=== PATIENT | male | born 1970 | race Caucasian/White ===

== ENCOUNTER 2020-10-24 02:41 | Outpatient (CLI) | payer MEDICARE, MEDICAID, SELFPAY ==
[2020-10-24 12:30] LABS: HCT 45.1 % (40.0-50.0); HGB 15.1 g/dL (13.5-17.5); MCH 31.3 pg (27.0-33.0); MCHC 33.5 % (32.0-36.0); MCV 93.6 fL (80-95); Platelet Count 132 10^3/uL (130-400); RBC 4.82 10^6/uL (4.36-5.78); RDW 12.8 % (11.8-14.1); RDW-SD 44.3 fL; WBC 4.26 10^3/uL (4.4-10.8)
[2020-10-24 13:30] LABS: ALT 67 U/L (16-63); AST 30 U/L (15-37); Albumin 3.9 g/dL (3.4-5.0); Alkaline Phosphatase 62 U/L (46-116); Anion Gap 4.8 mmol/L (3-11); BUN 25 mg/dL (7-18); Bilirubin, Total 0.5 mg/dL (0.2-1.0); CO2 31.2 mmol/L (21.0-32.0); CREATININE 1.05 mg/dL (0.70-1.30); Calcium 9.3 mg/dL (8.5-10.1); Chloride 108 mmol/L (98-107); Glucose 80 mg/dL (74-106); Potassium 4.1 mmol/L (3.5-5.1); Sodium 144 mmol/L (136-145)
[2020-10-24 13:32] LABS: VALPROIC ACID 66.2 ug/mL (50-100)
== END 2020-10-24 03:01 ==
PROVIDERS: PCP Internal Medicine; Visit Provider Psychiatry & Neurology Child & Adolescent Psychiatry
DX: F71 Moderate intellectual disabilities (principal); Z51.81 Encounter for therapeutic drug level monitoring; Z79.899 Other long term (current) drug therapy
CPT/HCPCS: 36415; 80053; 85027; 80164

== ENCOUNTER 2022-01-03 02:54 | Outpatient (CLI) | payer MEDICARE, MEDICAID, SELFPAY ==
[2022-01-03 12:11] LABS: Abs Immature Grans 0.02 10^3/uL (0.0-0.06); Absolute Basophil Count 0.03 10^3/uL (0.0-0.2); Absolute Eosinophil Count 0.04 10^3/uL (0.0-0.7); Absolute Lymphocyte Count 0.93 10^3/uL (1.2-3.4); Absolute Monocyte Count 0.31 10^3/uL (0.1-0.8); Absolute Neutrophil Count 3.88 10^3/uL (1.2-6.7); Basophils % 0.6; Eosinophils % 0.8; HCT 42.6 % (40.0-50.0); HGB 13.6 g/dL (13.5-17.5); Immature Grans % 0.4; Lymphocytes % 17.9; MCHC 31.9 % (32.0-36.0); MPV 9.8 fL (8.0-11.0); Neutrophils % 74.3; Nucleated RBC 0 %; Platelet Count 147 10^3/uL (130-400); RBC 4.39 10^6/uL (4.36-5.78); RDW 13.6 % (11.8-14.1); RDW-SD 49.4 fL; WBC 5.21 10^3/uL (4.4-10.8)
[2022-01-03 12:20] LABS: VALPROIC ACID 46.6 ug/mL
[2022-01-03 13:18] LABS: ALT 45 U/L (16-63); AST 27 U/L (15-37); Albumin 3.8 g/dL (3.4-5.0); Alkaline Phosphatase 68 U/L (46-116); Anion Gap 9.1 mmol/L (3-11); BUN 25 mg/dL (7-18); Bilirubin, Total 0.5 mg/dL (0.2-1.0); CO2 28.9 mmol/L (21.0-32.0); CREATININE 0.9 mg/dL (0.70-1.30); Chloride 109 mmol/L (98-107); Glucose 88 mg/dL (74-106); Potassium 4.2 mmol/L (3.5-5.1); Sodium 147 mmol/L (136-145); Total Protein 7.2 g/dL (6.4-8.2)
== END 2022-01-03 02:55 | disposition home or self-care (01) ==
PROVIDERS: PCP Internal Medicine; Visit Provider Psychiatry & Neurology Child & Adolescent Psychiatry
DX: F71 Moderate intellectual disabilities (principal); Z51.81 Encounter for therapeutic drug level monitoring; Z79.899 Other long term (current) drug therapy
CPT/HCPCS: 36415; 80053; 80164; 85025

== ENCOUNTER 2022-01-24 01:48 | Outpatient (CLI) | payer MEDICARE, MEDICAID, SELFPAY | END 2022-01-24 01:49 | disposition home or self-care (01) | LOC: LBO 01:48 | PROVIDERS: PCP Internal Medicine; Visit Provider Internal Medicine ==

== ENCOUNTER 2022-01-27 02:38 | Outpatient (CLI) | payer MEDICARE, MEDICAID, SELFPAY ==
[2022-01-27 16:29] LABS: Abs Immature Grans 0.03 10^3/uL (0.0-0.06); Absolute Basophil Count 0.04 10^3/uL (0.0-0.2); Absolute Eosinophil Count 0.17 10^3/uL (0.0-0.7); Absolute Lymphocyte Count 0.82 10^3/uL (1.2-3.4); Absolute Monocyte Count 0.75 10^3/uL (0.1-0.8); Absolute Neutrophil Count 5.89 10^3/uL (1.2-6.7); Basophils % 0.5; Eosinophils % 2.2; HCT 41.2 % (40.0-50.0); HGB 13.6 g/dL (13.5-17.5); Immature Grans % 0.4; Lymphocytes % 10.6; MCH 31.5 pg (27.0-33.0); MCV 95 fL (80-95); MPV 10.5 fL (8.0-11.0); Monocytes % 9.7; Neutrophils % 76.6; Platelet Count 142 10^3/uL (130-400); RBC 4.32 10^6/uL (4.36-5.78); RDW 13.1 % (11.8-14.1); RDW-SD 46.2 fL
[2022-01-27 16:37] LABS: Ammonia 19 umol/L (11-32)
[2022-01-27 17:07] LABS: ALT 55 U/L (16-63); AST 30 U/L (15-37); Albumin 3.5 g/dL (3.4-5.0); Alkaline Phosphatase 65 U/L (46-116); Bilirubin, Direct 0.1 mg/dL (0.0-0.2); Bilirubin, Total 0.3 mg/dL (0.2-1.0); Total Protein 6.8 g/dL (6.4-8.2)
[2022-01-27 17:48] LABS: VALPROIC ACID 77.9 ug/mL
== END 2022-01-27 02:39 | disposition home or self-care (01) ==
LOC: LBO 02:38
PROVIDERS: PCP Internal Medicine; Visit Provider Internal Medicine
DX: Z51.81 Encounter for therapeutic drug level monitoring; Z79.899 Other long term (current) drug therapy; F71 Moderate intellectual disabilities; F34.89 Other specified persistent mood disorders
CPT/HCPCS: 36415; 80076; 80164; 82140; 85025

== ENCOUNTER 2022-01-27 02:46 | Outpatient (CLI) | payer MEDICARE, MEDICAID, SELFPAY | END 2022-01-27 02:47 | disposition home or self-care (01) | LOC: LOS 02:46 | PROVIDERS: PCP Internal Medicine; Visit Provider Internal Medicine ==

== ENCOUNTER 2022-03-17 10:50 | Outpatient (CLI) | payer MEDICARE, MEDICAID, SELFPAY ==
[2022-03-17 12:44] LABS: Abs Immature Grans 0.02 10^3/uL (0.0-0.06); Absolute Basophil Count 0.03 10^3/uL (0.0-0.2); Absolute Eosinophil Count 0.13 10^3/uL (0.0-0.7); Absolute Lymphocyte Count 1.04 10^3/uL (1.2-3.4); Absolute Monocyte Count 0.32 10^3/uL (0.1-0.8); Absolute Neutrophil Count 3.21 10^3/uL (1.2-6.7); Basophils % 0.6; Eosinophils % 2.7; HCT 43.2 % (40.0-50.0); HGB 14.4 g/dL (13.5-17.5); Immature Grans % 0.4; Lymphocytes % 21.9; MCH 30.8 pg (27.0-33.0); MCHC 33.3 % (32.0-36.0); MCV 92 fL (80-95); MPV 9.4 fL (8.0-11.0); Monocytes % 6.7; Neutrophils % 67.7; Platelet Count 128 10^3/uL (130-400); RBC 4.68 10^6/uL (4.36-5.78); RDW 12.9 % (11.8-14.1); RDW-SD 43.8 fL; WBC 4.75 10^3/uL (4.4-10.8)
[2022-03-17 12:57] LABS: Ammonia 61 umol/L (11-32)
[2022-03-17 13:20] LABS: ALT 65 U/L (16-63); AST 30 U/L (15-37); Albumin 3.4 g/dL (3.4-5.0); Alkaline Phosphatase 62 U/L (46-116); Anion Gap 7.2 mmol/L (3-11); BUN 21 mg/dL (7-18); Bilirubin, Total 0.4 mg/dL (0.2-1.0); CO2 29.8 mmol/L (21.0-32.0); CREATININE 0.9 mg/dL (0.70-1.30); Chloride 101 mmol/L (98-107); Glucose 87 mg/dL (74-106); Potassium 4.3 mmol/L (3.5-5.1); Sodium 138 mmol/L (136-145); Total Protein 7.1 g/dL (6.4-8.2)
[2022-03-17 15:51] LABS: VALPROIC ACID 99.1 ug/mL
== END 2022-03-17 10:51 | disposition home or self-care (01) ==
LOC: LBO 10:54
PROVIDERS: PCP Internal Medicine; Visit Provider Psychiatry & Neurology Child & Adolescent Psychiatry
DX: F71 Moderate intellectual disabilities (principal); Z51.81 Encounter for therapeutic drug level monitoring; Z79.899 Other long term (current) drug therapy
CPT/HCPCS: 36415; 80053; 80164; 82140; 85025

== ENCOUNTER → 2022-04-21 01:50 | Outpatient (CLI) | payer MEDICARE, MEDICAID, SELFPAY ==
--- NOTE | 2022-04-21 | DI.MRI_ITS ---
Exam(s) MR LUMBAR SPINE WO EXAM: MR LUMBAR SPINE WO CLINICAL HISTORY: MILD LOW BACK PAIN M54.59. TECHNIQUE: Multiplanar multisequence MRI of the Lumbar spine was performed. COMPARISON: No plain films available at the time of this MRI interpretation. FINDINGS: Five lumbar vertebrae are presumed. Conus medullaris is at normal level. There is no evidence of conus mass nor subjacent clumping of in trathecal nerve roots to suggest arachnoiditis. The distal thecal sac appears unremarkable.There is no evidence of Tarlov intrasacral cysts nor other significant findings within the sacral canal Bones:There are no fractures nor ominous osseous lesions in the lumbar vertebral bodies and visualize d sacrum. With respect to the individual levels... T12-L1: Unremarkable L1-2: Normal disc height and signal. No disc herniation nor central canal stenosis.No foraminal steno sis L2-3: Normal disc height. No disc herniation nor central canal stenosis.No foraminal stenosis.No face t arthropathy. L3-4: Normal disc height and signal. No disc herniation or central canal stenosis. No foraminal gabbi nosis. No significant facet arthropathy. L4-5: Normal disc height and signal. There is annular bulging with a superimposed shallow central davidson bligamentous disc protrusion. This mildly indents the thecal sac, resulting in mild central canal st enosis. No foraminal stenosis. No facet arthropathy. L5-S1: Normal disc height and signal. Posteriorly there is a central annular tear with central subli gamentous disc protrusion at this level. This indents the anterior aspect thecal sac. Results in mi ld central canal stenosis. There is no significant foraminal stenosis. Soft tissues: On the right side there are cysts which are evident in the lateral aspect of the right kidney and medial right hepatic lobe. However, please note that this area is blurred and difficult to assess. IMPRESSION: 1. Findings above at L4-5 and L5-S1 levels with central subligamentous disc protrusions at these 2 le vels. However, please note that there are no plain films available time this MRI interpretation and there appears to be possible transitional anatomy. Therefore a set of lumbar spine plain film as wel l as AP view of the thoracic spine is recommended, particularly if this patient is ever to be a surgi madison candidate. This would avoid operating on the wrong level(s). DATA REPOSITORY:
== END ==
PROVIDERS: PCP Internal Medicine; Visit Provider Internal Medicine
DX: M51.27 Other intervertebral disc displacement, lumbosacral region
CPT/HCPCS: 72148

== ENCOUNTER 2022-10-22 17:58 | Outpatient (REF) | payer MEDICARE, MEDICAID, SELFPAY ==
[2022-10-22 12:46] LABS: Bilirubin Negative (Negative); Blood Negative (Negative); Clarity Clear (Clear); Glucose Negative (Negative); Ketones Negative (Negative); Leukocyte Esterase Negative (Negative); Nitrite Negative (Negative); Specific Gravity 1.025 (1.005-1.025)
== END 2022-10-22 17:59 | disposition home or self-care (01) ==
LOC: NCHCN 17:58
PROVIDERS: PCP Internal Medicine; Visit Provider Internal Medicine
DX: R32 Unspecified urinary incontinence (principal); R82.998 Other abnormal findings in urine
CPT/HCPCS: 81003

== ENCOUNTER 2023-01-14 12:35 | Outpatient (CLI) | payer MEDICARE, MEDICAID, SELFPAY ==
[2023-01-14 11:57] LABS: Abs Immature Grans 0.02 10^3/uL (0.0-0.06); Absolute Basophil Count 0.02 10^3/uL (0.0-0.2); Absolute Eosinophil Count 0.05 10^3/uL (0.0-0.7); Absolute Lymphocyte Count 1.22 10^3/uL (1.2-3.4); Absolute Monocyte Count 0.51 10^3/uL (0.1-0.8); Absolute Neutrophil Count 3.69 10^3/uL (1.2-6.7); Basophils % 0.4; Eosinophils % 0.9; HCT 42.6 % (40.0-50.0); HGB 14.5 g/dL (13.5-17.5); Immature Grans % 0.4; Lymphocytes % 22.1; MCH 32.5 pg (27.0-33.0); MCV 96 fL (80-95); MPV 9.5 fL (8.0-11.0); Monocytes % 9.3; Neutrophils % 66.9; Platelet Count 108 10^3/uL (130-400); RBC 4.46 10^6/uL (4.36-5.78); RDW 13.1 % (11.8-14.1); RDW-SD 46.5 fL; WBC 5.51 10^3/uL (4.4-10.8)
[2023-01-14 12:39] LABS: ALT 101 U/L (16-63); AST 78 U/L (15-37); Albumin 3.4 g/dL (3.4-5.0); Alkaline Phosphatase 65 U/L (46-116); Anion Gap 3.4 mmol/L (3-11); BUN 21 mg/dL (7-18); Bilirubin, Total 0.6 mg/dL (0.2-1.0); CO2 31.6 mmol/L (21.0-32.0); CREATININE 1.1 mg/dL (0.70-1.30); Chloride 107 mmol/L (98-107); Estimated GFR 80.27 (mL/min/1.73m2); Glucose 81 mg/dL (74-106); Potassium 4.5 mmol/L (3.5-5.1); Sodium 142 mmol/L (136-145)
== END 2023-01-14 12:36 | disposition home or self-care (01) ==
LOC: LBO 12:36
PROVIDERS: PCP Internal Medicine; Visit Provider Psychiatry & Neurology Child & Adolescent Psychiatry
DX: F71 Moderate intellectual disabilities (principal)
CPT/HCPCS: 36415; 80053; 85025

== ENCOUNTER 2023-01-15 03:36 | Outpatient (CLI) | payer MEDICARE, MEDICAID, SELFPAY ==
[2023-01-15 10:36] LABS: VALPROIC ACID 110.4 ug/mL
== END 2023-01-15 03:37 | disposition home or self-care (01) ==
LOC: LBO 03:36
PROVIDERS: PCP Internal Medicine; Visit Provider Psychiatry & Neurology Child & Adolescent Psychiatry
DX: F71 Moderate intellectual disabilities (principal)
CPT/HCPCS: 80164

== ENCOUNTER 2023-03-10 20:49 | Emergency (ER) | payer MEDICARE, MEDICAID, SELFPAY ==
[2023-03-10 20:51] VITALS: BP 142/89; PULSE 98; RESP 16; TEMP 36.9; O2SAT 98
--- NOTE | 2023-03-10 22:50 | W.ED.GENAD ---
Discharge Plan Disposition Patient Disposition: Home Discharge Details Clinical Impression: Laceration of hand, right Primary Care Provider: Kar Dillard ED Provider: Nahun Gonzalez Discharge Instructions Instructions: Laceration (ED) Additional Instructions: Watch for any signs of infection and return immediately to the emergency department if these occur. Otherwise keep dressing in place for the next 24-48 hours and then keep wound clean and dry. Return to the emergency department 14 days for suture removal. Referrals: Kar Dillard [Primary Care Provider] - 2 days Discharge Data Discharge Date/Time-TO BE ENTERED AT DEPARTURE: 03/10/23 23:01 Medical Decision Making Patient presenting to the emergency department with caregiver for chief complaint of right hand laceration. Patient has significant developmental disability and repetitive limited speech. Caregiver states that patient occasionally strikes things and she feels like he may have struck a piece of plexiglass injuring his right palm. Patient has full flexion and extension of his fingers and he does state sensation but again this is difficult to fully ascertain due to mental status. There is a 4-1/2 cm palmar laceration. Right hand palmar laceration repaired with #9 4-0 Prolene sutures. Patient tolerated procedure well. Patient up-to-date on tetanus per caregiver. Patient recommended to have follow-up with primary care provider in 48 hours for recheck of laceration. After discussion of diagnosis and plan of care, caregiver has no further needs, questions, or concerns and states clear understanding to return to the emergency department for any worsening symptoms. This documentation was generated using [employer] dictation system, please disregard any oddities of phrase or misspellings. HPI General Mode of arrival: ambulatory. Date/Time Provider Initiated Documentation: 03/10/23 22:50. Information obtained by: patient and family (caregiver). History of Present Illness 52 year old M presents to the emergency department with the chief complaint of Right hand laceration, described as moderate, Patient started experiencing this hour(s) (1) and it has been constant. Patient notes no other symptoms.. Patient did receive the following treatments prior to arrival, other (Irrigation at home) General Stated Complaint: Laceration KEVEN: 3 Review of Systems Narrative: 6 systems reviewed and unremarkable except what is marked below. Musculoskeletal Musculoskeletal: Reports as per HPI Integumentary/Breasts Skin/Breast: Reports as per HPI PFS All Active Problems (Updated 03/11/23 @ 22:39 by Nahun Gonzalez NP) Cognitive developmental delay (Acute) Laceration of hand, right (Acute) Social History Smoking/Tobacco Use Status: Never Smoking risk assessment performed?: Yes Alcohol Intake: never Drug use: Never Substance use type: does not use Do you feel safe at home: Yes Do you feel safe in your relationship?: Yes Exam Const General: cooperative, no acute distress and not ill appearing Orientation: alert and awake [facility] Mouth: moist mucous membranes Resp Effort & Inspection: normal respiratory effort, able to speak in complete sentences and no respiratory distress Cardio Rate: regular rate Rhythm: regular rhythm Skin General skin exam: no rashes or lesions noted Neuro General: patient alert, patient awake, moves all extremities and no focal motor deficits Sensory Exam: no sensory deficits noted Extrem General: normal exam except as noted Right upper extremity: hand Details: neuromotor exam normal, neurosensory exam normal, tendon exam normal and laceration palm palmar aspect central Details: linear, actively bleeding, involving subcutaneous tissue, with motor nerve function intact and with sensation intact Course Vital Signs Vital signs: Vital Signs Temperature 36.9 C 03/10/23 20:51 Pulse 98 H 03/10/23 20:51 Respiratory Rate 16 03/10/23 20:51 Blood Pressure 142/89 H 03/10/23 20:51 Pulse Oximetry 98 03/10/23 20:51 Temperature 36.9 C 03/10/23 20:51 Temperature Source Oral 03/10/23 20:51 Pulse 98 H 03/10/23 20:51 Respiratory Rate 16 03/10/23 20:51 Respiratory Effort Normal 03/10/23 20:56 Blood Pressure 142/89 H 03/10/23 20:51 Blood Pressure Position Sitting 03/10/23 20:51 Pulse Oximetry 98 03/10/23 20:51 Oxygen Delivery Method Room Air 03/10/23 20:51 Oxygen Flow Rate 0 03/10/23 20:51 Pain Level 0 03/10/23 20:51 Procedures Laceration Laceration 1: Site: hand Side (If applicable): right Size (cm): 4.5 Description: stellate, irregular and clean Depth: simple, single layer Local Anesthetic: Lidocaine 1% and with Epi Amount of anesthesia used (mL): 7 Pre-repair: wound explored, irrigated extensively and deep structures intact Skin layer closed with: other (Prolene) Size (cm): 4-0 Number of sutures: 9 Technique: simple, interrupted
--- NOTE | 2023-03-10 23:26 | NUR.NOTE ---
Referral to care management to refer patient to his pcp Dr Kar Dillard for f/u to recheck r hand laceration.Nursing Note:
== END 2023-03-10 23:01 | disposition home or self-care (01) ==
PROVIDERS: Emergency Provider Nurse Practitioner Family; PCP Internal Medicine
DX: S61.411A Laceration without foreign body of right hand, initial encounter (principal); X58.XXXA Exposure to other specified factors, initial encounter; F81.9 Developmental disorder of scholastic skills, unspecified
CPT/HCPCS: 12002

== ENCOUNTER 2023-05-13 19:03 | Outpatient (REF) | payer MEDICARE, MEDICAID, SELFPAY ==
[2023-05-13 21:51] LABS: Abs Immature Grans 0.02 10^3/uL (0.0-0.06); Absolute Basophil Count 0.02 10^3/uL (0.0-0.2); Absolute Eosinophil Count 0.07 10^3/uL (0.0-0.7); Absolute Lymphocyte Count 0.94 10^3/uL (1.2-3.4); Absolute Monocyte Count 0.31 10^3/uL (0.1-0.8); Absolute Neutrophil Count 3.89 10^3/uL (1.2-6.7); Basophils % 0.4; Eosinophils % 1.3; HGB 13.8 g/dL (13.5-17.5); Immature Grans % 0.4; Lymphocytes % 17.9; MCHC 32.9 % (32.0-36.0); MCV 97 fL (80-95); MPV 10.5 fL (8.0-11.0); Monocytes % 5.9; Neutrophils % 74.1; Platelet Count 130 10^3/uL (130-400); RBC 4.31 10^6/uL (4.36-5.78); RDW 13.4 % (11.8-14.1); RDW-SD 48.3 fL; WBC 5.25 10^3/uL (4.4-10.8)
[2023-05-13 21:53] LABS: ESR 4 mm/hr (0-20)
[2023-05-13 21:58] LABS: C-Reactive Protein 0.74 mg/dL (0.0-0.3)
[2023-05-18 12:25] LABS: IgA 205 mg/dL (85-499); Interpretation (See Note); Tissue Transglutaminase IgA <1.2 U/mL (<4.0)
== END 2023-05-13 19:04 | disposition home or self-care (01) ==
LOC: NCHCN 19:03
PROVIDERS: PCP Internal Medicine; Visit Provider Internal Medicine
DX: R15.9 Full incontinence of feces (principal); R32 Unspecified urinary incontinence
CPT/HCPCS: 82784; 83516; 85652; 85025; 86140

== ENCOUNTER 2023-07-21 02:56 | Outpatient (CLI) | payer MEDICARE, MEDICAID, SELFPAY ==
[2023-07-21 12:50] LABS: Abs Immature Grans 0.02 10^3/uL (0.0-0.06); Absolute Basophil Count 0.04 10^3/uL (0.0-0.2); Absolute Eosinophil Count 0.33 10^3/uL (0.0-0.7); Absolute Lymphocyte Count 1.05 10^3/uL (1.2-3.4); Absolute Monocyte Count 0.37 10^3/uL (0.1-0.8); Basophils % 0.8; Eosinophils % 6.7; HCT 45.9 % (40.0-50.0); HGB 15.4 g/dL (13.5-17.5); Immature Grans % 0.4; Lymphocytes % 21.4; MCH 31.6 pg (27.0-33.0); MCHC 33.6 % (32.0-36.0); MCV 94 fL (80-95); MPV 10.4 fL (8.0-11.0); Monocytes % 7.5; Neutrophils % 63.2; Platelet Count 117 10^3/uL (130-400); RBC 4.87 10^6/uL (4.36-5.78); RDW-SD 45.6 fL; WBC 4.91 10^3/uL (4.4-10.8)
[2023-07-21 13:17] LABS: VALPROIC ACID 70.7 ug/mL
[2023-07-21 13:24] LABS: ALT 53 U/L (16-63); AST 33 U/L (15-37); Albumin 3.6 g/dL (3.4-5.0); Alkaline Phosphatase 82 U/L (46-116); Anion Gap 10.3 mmol/L (3-11); BUN 18 mg/dL (7-18); Bilirubin, Total 0.6 mg/dL (0.2-1.0); CO2 27.7 mmol/L (21.0-32.0); Calcium 9.6 mg/dL (8.5-10.1); Chloride 106 mmol/L (98-107); Estimated GFR 89.44 (mL/min/1.73m2); Glucose 106 mg/dL (74-106); Potassium 3.9 mmol/L (3.5-5.1); Sodium 144 mmol/L (136-145); TSH 5.31 uIU/mL (0.36-3.74); Total Protein 7.7 g/dL (6.4-8.2)
== END 2023-07-21 02:57 | disposition home or self-care (01) ==
LOC: LOS 02:56
PROVIDERS: PCP Internal Medicine; Visit Provider Nurse Practitioner Psychiatric/Mental Health
DX: R73.03 Prediabetes (principal)
CPT/HCPCS: 36415; 80053; 80164; 83036; 84443; 85025

== ENCOUNTER 2023-09-10 01:55 | Outpatient (CLI) | payer MEDICARE, MEDICAID, SELFPAY ==
[2023-09-10 12:51] LABS: Absolute Basophil Count 0.02 10^3/uL (0.0-0.2); Absolute Eosinophil Count 0.07 10^3/uL (0.0-0.7); Absolute Lymphocyte Count 0.66 10^3/uL (1.2-3.4); Absolute Monocyte Count 0.28 10^3/uL (0.1-0.8); Basophils % 0.7; Eosinophils % 2.3; HGB 13.5 g/dL (13.5-17.5); Lymphocytes % 21.8; MCH 32.1 pg (27.0-33.0); MCHC 32.9 % (32.0-36.0); MCV 98 fL (80-95); MPV 10.2 fL (8.0-11.0); Monocytes % 9.2; Platelet Count 116 10^3/uL (130-400); RDW 13.7 % (11.8-14.1); RDW-SD 49.1 fL; WBC 3.03 10^3/uL (4.4-10.8)
[2023-09-10 13:06] LABS: VALPROIC ACID 83.6 ug/mL
[2023-09-10 13:09] LABS: ALT 72 U/L (16-63); AST 57 U/L (15-37); Alkaline Phosphatase 66 U/L (46-116); Anion Gap 7.6 mmol/L (3-11); BUN 24 mg/dL (7-18); Bilirubin, Total 0.5 mg/dL (0.2-1.0); CO2 29.4 mmol/L (21.0-32.0); CREATININE 1.1 mg/dL (0.70-1.30); Calcium 9.2 mg/dL (8.5-10.1); Chloride 109 mmol/L (98-107); Estimated GFR 79.77 (mL/min/1.73m2); Glucose 105 mg/dL (74-106); Potassium 4.5 mmol/L (3.5-5.1); Sodium 146 mmol/L (136-145); TSH 3.77 uIU/mL (0.36-3.74); Total Protein 6.8 g/dL (6.4-8.2)
[2023-09-10 13:27] LABS: Hemoglobin A1C 4.7 % (<5.7)
== END 2023-09-10 01:56 | disposition home or self-care (01) ==
LOC: LOS 01:55
PROVIDERS: PCP Internal Medicine; Visit Provider Nurse Practitioner Psychiatric/Mental Health
DX: R73.03 Prediabetes (principal); Z79.899 Other long term (current) drug therapy
CPT/HCPCS: 36415; 80053; 80164; 83036; 84443; 85025

== ENCOUNTER 2023-09-15 02:51 | Outpatient (CLI) | payer MEDICARE, MEDICAID, SELFPAY ==
[2023-09-15 13:56] LABS: VALPROIC ACID 98.2 ug/mL
== END 2023-09-15 02:52 | disposition home or self-care (01) ==
LOC: LOS 02:51
PROVIDERS: PCP Internal Medicine; Visit Provider Nurse Practitioner Psychiatric/Mental Health
DX: Z79.810 Long term (current) use of selective estrogen receptor modulators (SERMs) (principal); R73.03 Prediabetes
CPT/HCPCS: 36415; 80164

== ENCOUNTER 2024-01-21 15:33 | Outpatient (REF) | payer MEDICARE, MEDICAID, SELFPAY ==
[2024-01-21 19:20] LABS: Abs Immature Grans 0.03 10^3/uL (0.0-0.06); Absolute Basophil Count 0.02 10^3/uL (0.0-0.2); Absolute Eosinophil Count 0.03 10^3/uL (0.0-0.7); Absolute Lymphocyte Count 0.75 10^3/uL (1.2-3.4); Absolute Monocyte Count 0.51 10^3/uL (0.1-0.8); Absolute Neutrophil Count 3.53 10^3/uL (1.2-6.7); Basophils % 0.4; Eosinophils % 0.6; HCT 38.6 % (40.0-50.0); HGB 12.6 g/dL (13.5-17.5); Immature Grans % 0.6; Lymphocytes % 15.4; MCH 33.1 pg (27.0-33.0); MCHC 32.6 % (32.0-36.0); MCV 101 fL (80-95); MPV 10.3 fL (8.0-11.0); Monocytes % 10.5; Neutrophils % 72.5; RBC 3.81 10^6/uL (4.36-5.78); RDW 14.2 % (11.8-14.1); RDW-SD 53.2 fL; WBC 4.87 10^3/uL (4.4-10.8)
[2024-01-21 19:34] LABS: Platelet Count 89 10^3/uL (130-400)
[2024-01-21 19:49] LABS: ALT 47 U/L (16-63); AST 33 U/L (15-37); Alkaline Phosphatase 66 U/L (46-116); Anion Gap 8.8 mmol/L (3-11); BUN 34 mg/dL (7-18); Bilirubin, Total 0.4 mg/dL (0.2-1.0); CO2 26.2 mmol/L (21.0-32.0); Calcium 8.6 mg/dL (8.5-10.1); Chloride 106 mmol/L (98-107); Estimated GFR 89.44 (mL/min/1.73m2); Ferritin 210 ng/mL (26-388); Glucose 95 mg/dL (74-106); Potassium 4.1 mmol/L (3.5-5.1); Sodium 141 mmol/L (136-145); Total Protein 6.8 g/dL (6.4-8.2)
[2024-01-21 20:41] LABS: VALPROIC ACID 94.6 ug/mL
[2024-01-21 20:43] LABS: Iron 67 ug/dL (65-175); Total Iron Binding Capacity 276 ug/dL (250-450)
[2024-01-22 18:53] LABS: Hepatitis C Ab w Rflx HCV PCR Negative (Negative)
[2024-01-25 15:43] LABS: Hepatitis Be Antigen Negative (Negative)
== END 2024-01-21 15:34 | disposition home or self-care (01) ==
LOC: NCHCN 15:33
PROVIDERS: PCP Internal Medicine; Visit Provider Internal Medicine
DX: D69.6 Thrombocytopenia, unspecified (principal); R74.8 Abnormal levels of other serum enzymes
CPT/HCPCS: 80053; 86803; 80164; 82728; 83540; 83550; 85025; 87350

== ENCOUNTER → 2024-02-29 14:28 | Outpatient (BNVA) | payer MEDICARE, MEDICAID, SELFPAY | PROVIDERS: PCP Internal Medicine; Referring Provider Internal Medicine; Visit Provider Podiatrist | DX: L97.512 Non-pressure chronic ulcer of other part of right foot with fat layer exposed (principal); L84 Corns and callosities; L60.2 Onychogryphosis; L03.031 Cellulitis of right toe; R09.89 Other specified symptoms and signs involving the circulatory and respiratory systems; M79.671 Pain in right foot | CPT/HCPCS: 11042; 11055; 99204 ==

== ENCOUNTER 2024-03-03 21:51 | Outpatient (REF) | payer MEDICARE, MEDICAID, SELFPAY ==
[2024-03-03 19:18] LABS: ALT 77 U/L (16-63); AST 51 U/L (15-37); Albumin 3.9 g/dL (3.4-5.0); Alkaline Phosphatase 65 U/L (46-116); Anion Gap 11.3 mmol/L (3-11); BUN 29 mg/dL (7-18); Bilirubin, Total 0.5 mg/dL (0.2-1.0); CO2 25.7 mmol/L (21.0-32.0); Calcium 9.3 mg/dL (8.5-10.1); Chloride 106 mmol/L (98-107); Estimated GFR 89.44 (mL/min/1.73m2); Glucose 108 mg/dL (74-106); Potassium 3.4 mmol/L (3.5-5.1); Sodium 143 mmol/L (136-145); TSH 4.01 uIU/Ml (0.36-3.74); Total Protein 7.4 g/dL (6.4-8.2)
== END 2024-03-03 21:52 | disposition home or self-care (01) ==
LOC: NCHCN 21:51
PROVIDERS: PCP Internal Medicine; Visit Provider Internal Medicine
DX: F39 Unspecified mood [affective] disorder (principal); R74.8 Abnormal levels of other serum enzymes
CPT/HCPCS: 80053; 84443

== ENCOUNTER → 2024-03-21 13:57 | Outpatient (BNVA) | payer MEDICARE, MEDICAID, SELFPAY | PROVIDERS: PCP Internal Medicine; Referring Provider Internal Medicine; Visit Provider Surgery | DX: Z12.11 Encounter for screening for malignant neoplasm of colon (principal); R63.4 Abnormal weight loss; R74.8 Abnormal levels of other serum enzymes; F84.0 Autistic disorder; F81.9 Developmental disorder of scholastic skills, unspecified; D69.6 Thrombocytopenia, unspecified | CPT/HCPCS: 99213 ==

== ENCOUNTER → 2024-03-23 14:56 | Outpatient (BNVA) | payer MEDICARE, MEDICAID, SELFPAY | PROVIDERS: PCP Internal Medicine; Referring Provider Internal Medicine; Visit Provider Podiatrist | DX: L97.512 Non-pressure chronic ulcer of other part of right foot with fat layer exposed (principal); L84 Corns and callosities; L60.2 Onychogryphosis; L03.115 Cellulitis of right lower limb | CPT/HCPCS: 99213 ==

== ENCOUNTER → 2024-04-19 01:00 | Outpatient (CLI) | payer MEDICARE, MEDICAID, SELFPAY ==
[2024-04-19] MEDS: Breeza Beverage 473 ML BTL PO ×2 (09:00→09:02)
[2024-04-19] MEDS: Omnipaque 350 MG/ML 50 ML BTL PO (09:01)
[2024-04-19] MEDS: Normal Saline - Diluent 50 ML VIAL IJ (10:35)
[2024-04-19] MEDS: Omnipaque 350 MG/ML 100 ML BTL 90 ML IJ (10:56)
--- NOTE | 2024-04-19 11:00 | DI.CT_ITS ---
Exam(s) CT ABDOMEN PELVIS W EXAM: CT ABDOMEN PELVIS W CLINICAL HISTORY: elevated LFT/low platelet,d69.6,r74.8 TECHNIQUE: Imaging Protocol: Axial computed tomography images with coronal and sagittal reformatted images were created and reviewed. CONTRAST MATERIAL: Intravenous: Omnipaque 350 Contrast volume:100 mL Oral: Yes COMPARISON: MR MR LUMBAR SPINE WO from 04/21/2022 FINDINGS: The examination is limited due to patient motion artifact. ABDOMEN: Lung Bases: Normal where visualized. Liver: The dome of the liver was not included secondary to patient motion artifact. There are severa l hepatic cysts. The largest is in the right lobe measures 2 cm. No suspicious hepatic masses are p resent. Portal, Superior Mesenteric, and Splenic Veins: Unremarkable. Gallbladder and Biliary Tract: No radiodense calculus or dilation. Pancreas: Normal density, no abnormal calcifications or inflammatory process. Spleen: Normal. Adrenals: No masses seen. Kidneys: Normal size, contour and axis. Left nephrolithiasis. No obstructive uropathy. There is a s mall hypodensity in the right kidney which is too small for further characterization but likely refle cts a small cyst. No follow-up is recommended. Abdominal Aorta: Abdominal portion non-dilated. Mild atherosclerotic calcification is present. Bowel: There is a large amount of stool throughout the colon suggesting constipation. There is no jp wel wall thickening or obstruction. Appendix is unremarkable. Peritoneal Cavity: No ascites, collection or mesenteric inflammatory response. No free air. Lymph Nodes: Within normal limits. Bones: Within normal limits for the patient's age. Soft Tissues: Unremarkable. PELVIS: Bladder: Symmetric distention, no gross wall thickening. Reproductive Organs: Unremarkable as visualized. Lymph Nodes: Within normal limits. Bones: Within normal limits for the patient's age. IMPRESSION: 1. No acute abdominal or pelvic process. 2. No evidence of a hepatic mass, cholelithiasis or biliary ductal dilatation. 3. Findings suggestive of constipation. RADIATION DOSE DELIVERED: Total DLP DATA REPOSITORY: All CT scans at this facility are submitted to the National Radiology Data Registry (NRDR) Dose Index Registry (DIR) with the [employer] (ACR). RADIATION OPTIMIZATION: All CT scans at this facility use at least one of these dose optimization te chniques: automated exposure control; mA and/or kV adjustment per patient size (includes targeted exa ms where dose is matched to clinical indication); or iterative reconstruction.
== END ==
PROVIDERS: PCP Internal Medicine; Visit Provider Surgery
DX: D69.6 Thrombocytopenia, unspecified (principal); R74.8 Abnormal levels of other serum enzymes; F81.9 Developmental disorder of scholastic skills, unspecified; F84.0 Autistic disorder
CPT/HCPCS: 74177; J3490; Q9967

== ENCOUNTER → 2024-04-21 14:13 | Outpatient (BNVA) | payer MEDICARE, MEDICAID, SELFPAY | PROVIDERS: PCP Internal Medicine; Referring Provider Internal Medicine; Visit Provider Podiatrist | DX: L97.512 Non-pressure chronic ulcer of other part of right foot with fat layer exposed (principal); L84 Corns and callosities; L60.2 Onychogryphosis; L03.115 Cellulitis of right lower limb; Q82.8 Other specified congenital malformations of skin; M20.41 Other hammer toe(s) (acquired), right foot | CPT/HCPCS: 17110 ==

== ENCOUNTER 2024-05-05 01:55 | Outpatient (CLI) | payer MEDICARE, MEDICAID, SELFPAY ==
[2024-05-05 12:14] LABS: Abs Immature Grans 0.01 10^3/uL (0.0-0.06); Absolute Basophil Count 0.06 10^3/uL (0.0-0.2); Absolute Lymphocyte Count 0.88 10^3/uL (1.2-3.4); Absolute Monocyte Count 0.27 10^3/uL (0.1-0.8); Absolute Neutrophil Count 3.22 10^3/uL (1.2-6.7); Basophils % 1.2 %; Eosinophils % 10.1 %; HCT 35.6 % (40.0-50.0); HGB 12.1 g/dL (13.5-17.5); Immature Grans % 0.2 %; Lymphocytes % 17.8 %; MCV 91 fL (80-95); MPV 9.7 fL (8.0-11.0); Monocytes % 5.5 %; Neutrophils % 65.2 %; Platelet Count 147 10^3/uL (130-400); RDW 12.4 % (11.8-14.1); RDW-SD 40.6 fL; Reticulocyte 1.8 % (0.5-2.4); WBC 4.94 10^3/uL (4.4-10.8)
[2024-05-05 13:02] LABS: Iron 49 ug/dL (65-175); Total Iron Binding Capacity 259 ug/dL (250-450); Transferrin Sat 19 % (20-55)
[2024-05-05 13:05] LABS: VALPROIC ACID < 3 ug/mL
[2024-05-05 13:16] LABS: ALT 70 U/L (16-63); AST 28 U/L (15-37); Albumin 3.6 g/dL (3.4-5.0); Alkaline Phosphatase 80 U/L (46-116); Anion Gap 7.4 mmol/L (3-11); BUN 15 mg/dL (7-18); Bilirubin, Direct 0.1 mg/dL (0.0-0.2); Bilirubin, Total 0.34 mg/dL (0.2-1.0); C-Reactive Protein 0.85 mg/dL (<or=0.5); CO2 30.6 mmol/L (21.0-32.0); CREATININE 0.9 mg/dL (0.70-1.30); Calcium 9.4 mg/dL (8.5-10.1); Chloride 105 mmol/L (98-107); Estimated GFR 100.86 (mL/min/1.73m2); Ferritin 131 ng/mL (26-388); Glucose 96 mg/dL (74-106); LDH 249 U/L (85-227); Potassium 3.7 mmol/L (3.5-5.1); Sodium 143 mmol/L (136-145); Total Protein 6.9 g/dL (6.4-8.2)
[2024-05-05 21:04] LABS: Hepatitis B Surface Ag Negative (Negative)
[2024-05-05 21:34] LABS: Hepatitis C Ab w Rflx HCV PCR Negative (Negative)
[2024-05-06 09:00] LABS: Haptoglobin 67 mg/dL (32-197)
== END 2024-05-05 01:56 | disposition home or self-care (01) ==
PROVIDERS: PCP Internal Medicine; Visit Provider Surgery
DX: D69.6 Thrombocytopenia, unspecified (principal); R74.8 Abnormal levels of other serum enzymes; F81.9 Developmental disorder of scholastic skills, unspecified; F84.0 Autistic disorder; D64.9 Anemia, unspecified
CPT/HCPCS: 36415; 80053; 80076; 86803; 87340; 80164; 82728; 83010; 83540; 83550; 83615; 85025; 85045; 86140

== ENCOUNTER 2024-07-13 02:14 | Outpatient (CLI) | payer MEDICARE, MEDICAID, SELFPAY | END 2024-07-13 02:34 | LOC: DI 02:14 | PROVIDERS: PCP Internal Medicine; Visit Provider Podiatrist | DX: L97.512 Non-pressure chronic ulcer of other part of right foot with fat layer exposed (principal); L03.90 Cellulitis, unspecified | CPT/HCPCS: 17110 ==

== ENCOUNTER 2024-10-06 15:47 | Outpatient (REF) | payer MEDICARE, MEDICAID, SELFPAY ==
[2024-10-06 19:44] LABS: HCT 45.1 % (40.0-50.0); HGB 15.1 g/dL (13.5-17.5); MCH 30.3 pg (27.0-33.0); MCHC 33.5 % (32.0-36.0); MCV 91 fL (80-95); MPV 10.6 fL (8.0-11.0); Platelet Count 151 10^3/uL (130-400); RBC 4.98 10^6/uL (4.36-5.78); RDW 13.2 % (11.8-14.1); RDW-SD 43.3 fL; WBC 6.48 10^3/uL (4.4-10.8)
[2024-10-06 19:59] LABS: ALT 46 U/L (16-63); AST 22 U/L (15-37); Alkaline Phosphatase 94 U/L (46-116); Bilirubin, Direct 0.1 mg/dL (0.0-0.2); Bilirubin, Total 0.26 mg/dL (0.2-1.0); Total Protein 7.6 g/dL (6.4-8.2)
== END 2024-10-06 15:48 | disposition home or self-care (01) ==
LOC: NCHCN 15:47
PROVIDERS: PCP Internal Medicine; Visit Provider Internal Medicine
DX: D64.9 Anemia, unspecified (principal); Z79.891 Long term (current) use of opiate analgesic
CPT/HCPCS: 80076; 85027

== ENCOUNTER 2025-03-16 18:07 | Outpatient (REF) | payer MEDICARE, MEDICAID, SELFPAY ==
[2025-03-16 18:38] LABS: Abs Immature Grans 0.01 10^3/uL (0.0-0.06); Absolute Basophil Count 0.05 10^3/uL (0.0-0.2); Absolute Eosinophil Count 0.14 10^3/uL (0.0-0.7); Absolute Lymphocyte Count 1.23 10^3/uL (1.2-3.4); Absolute Monocyte Count 0.39 10^3/uL (0.1-0.8); Absolute Neutrophil Count 3.87 10^3/uL (1.2-6.7); Basophils % 0.9 %; Eosinophils % 2.5 %; HCT 42.6 % (40.0-50.0); HGB 14.1 g/dL (13.5-17.5); Immature Grans % 0.2 %; Lymphocytes % 21.6 %; MCH 29.9 pg (27.0-33.0); MCHC 33.1 % (32.0-36.0); MCV 90 fL (80-95); MPV 10.9 fL (8.0-11.0); Monocytes % 6.9 %; Neutrophils % 67.9 %; Platelet Count 173 10^3/uL (130-400); RBC 4.71 10^6/uL (4.36-5.78); RDW 13.2 % (11.8-14.1); RDW-SD 43.8 fL; WBC 5.69 10^3/uL (4.4-10.8)
[2025-03-16 19:10] LABS: ALT 52 U/L (16-63); AST 28 U/L (15-37); Alkaline Phosphatase 92 U/L (46-116); BUN 36 mg/dL (7-18); Bilirubin, Total 0.4 mg/dL (0.2-1.0); CREATININE 0.9 mg/dL (0.70-1.30); Calcium 9.4 mg/dL (8.5-10.1); Chloride 110 mmol/L (98-107); Creatine Kinase 145 U/L (39-308); Estimated GFR 100.86 (mL/min/1.73m2); Glucose 111 mg/dL (74-106); Potassium 3.6 mmol/L (3.5-5.1); Sodium 147 mmol/L (136-145); TSH 1.34 uIU/mL (0.36-3.74); Total Protein 7.5 g/dL (6.4-8.2)
== END 2025-03-16 18:08 | disposition home or self-care (01) ==
LOC: NCHCN 18:07
PROVIDERS: PCP Internal Medicine; Visit Provider Internal Medicine
DX: F84.0 Autistic disorder (principal)
CPT/HCPCS: 80053; 82550; 84443; 85025

== ENCOUNTER 2025-06-08 10:39 | Outpatient (CLI) | payer MEDICARE, MEDICAID, SELFPAY ==
[2025-06-08 11:52] LABS: Lithium 0.4 mmol/L (0.6-1.2)
[2025-06-08 12:27] LABS: ALT 51 U/L (16-63); AST 29 U/L (15-37); Albumin 3.8 g/dL (3.4-5.0); Alkaline Phosphatase 88 U/L (46-116); Anion Gap 3.7 mmol/L (3-11); BUN 21 mg/dL (7-18); Bilirubin, Total 0.4 mg/dL (0.2-1.0); CO2 32.3 mmol/L (21.0-32.0); Calcium 9.5 mg/dL (8.5-10.1); Chloride 107 mmol/L (98-107); Estimated GFR 88.33 (mL/min/1.73m2); Glucose 71 mg/dL (74-106); Potassium 4.3 mmol/L (3.5-5.1); Sodium 143 mmol/L (136-145); T4 7.0 ug/dL (4.7-13.3); TSH 4.20 uIU/mL (0.36-3.74); Vitamin B12 671 pg/mL (193-986)
[2025-06-08 19:01] LABS: Total Protein 7.2 g/dL (6.4-8.2)
[2025-06-08 22:44] LABS: T3, Total 111 ng/dL (97-169)
== END 2025-06-08 10:40 | disposition home or self-care (01) ==
LOC: LBO 10:39
PROVIDERS: PCP Internal Medicine; Visit Provider Psychiatry & Neurology Psychiatry
DX: Z79.899 Other long term (current) drug therapy (principal)
CPT/HCPCS: 80053; 80178; 82607; 84436; 84439; 84443; 84480

== ENCOUNTER 2025-07-24 13:11 | Outpatient (CLI) | payer MEDICARE, MEDICAID, SELFPAY ==
[2025-07-24 14:14] LABS: TSH 2.73 uIU/mL (0.36-3.74)
[2025-07-24 14:25] LABS: T4 5.9 ug/dL (4.7-13.3)
[2025-07-24 14:27] LABS: Lithium 0.7 mmol/L (0.6-1.2)
[2025-07-24 22:36] LABS: T3, Total 93 ng/dL (82-158)
== END 2025-07-24 13:12 | disposition home or self-care (01) ==
LOC: LBO 13:15
PROVIDERS: PCP Internal Medicine; Visit Provider Psychiatry & Neurology Psychiatry
DX: Z79.899 Other long term (current) drug therapy (principal)
CPT/HCPCS: 36415; 80178; 84436; 84439; 84443; 84480